=== PATIENT | male | born 1995 | race Caucasian/White ===

== ENCOUNTER 2019-03-07 23:57 | Emergency (ER) | payer BC, OTHER ==
[2019-03-08] MEDS ORDERED: Silver Sulfadiazine 1%* 20 GM TOPICAL ONE (00:42)
[2019-03-08] MEDS ORDERED: Silver Sulfadiazine 1% 400gm* 1 APPLIC JAR TOPICAL ONE (00:45)
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
[2019-03-08 01:09] VITALS: BP 0/0
== END 2019-03-08 01:08 | disposition home or self-care (01) ==
LOC: ED 23:57
DX: T22.212A Burn of second degree of left forearm, initial encounter (principal); X10.2XXA Contact with fats and cooking oils, initial encounter; Y93.G9 Activity, other involving cooking and grilling; Y99.0 Civilian activity done for income or pay; F17.210 Nicotine dependence, cigarettes, uncomplicated
CPT/HCPCS: 99282; A9270-GY